=== PATIENT | male | born 1945 | race Caucasian/White ===

== ENCOUNTER 2020-02-04 09:40 | Inpatient (IN) | payer OTHER ==
[~2020-02-04] VITALS: Ht 182.9 cm; Wt 133.8 kg
--- NOTE | ~2020-02-04 | CON ---
[address] [address] CONSULTATION Name: MACY JOHNSON Room: [address] IN .R.#: [id number] Admission: 02/04/20 Attend Phys: Zhao Cintron MD Discharge: Date of : 49 Report #: [id number] THIS REPORT FOR: //name// cc: Leonardo Crawford MD, Srinath MD ~ THIS REPORT FOR: //name// CC: Zhao Crawford DATE OF SERVICE: 02/13/2020 CHIEF COMPLAINT: Podiatric consultation regarding dry skin to bilateral feet. The patient has complicated medical history, status post decubitus ulcer debridement, coronary artery disease, pneumonitis with recent COVID, type 2 diabetes mellitus, septicemia, congestive heart failure. PHYSICAL EXAMINATION: There is dry scaly skin to both plantar feet with no open ulcerations, inflammation or cardinal signs of infection. Toenails are dystrophic, but short and consistent with onychomycosis. He has faintly palpable dorsalis pedis and posterior tibial pulses bilaterally. No pallor or cyanosis noted. IMPRESSION: Xerosis, onychomycosis. PLAN: His toenails do not need to be debrided since they are currently in a short length. I just recommend his feet be washed with soap and water daily, dried and a good skin moisturizing lotion applied. No wound care is needed. By: 1310 1330Klaus Cherry DPM /ada
[2020-02-04 09:47] VITALS: BP 150/78
[2020-02-04] MEDS ORDERED: ASA81BEC PO (10:19)
[2020-02-04] MEDS ORDERED: MULTIPLE VITAM1 EAC2 PO (10:19)
[2020-02-04] MEDS ORDERED: BIOFREEZE118 ML TOP (10:19)
[2020-02-04] MEDS ORDERED: NORVASC 2.5 MG2.5 M1 PO (10:19)
[2020-02-04] MEDS ORDERED: NEURONTIN100 MG PO (10:20)
[2020-02-04] MEDS ORDERED: LASIX 40 MG TAB40 MG PO (10:20)
[2020-02-04] MEDS ORDERED: ZETIA10 MG PO (10:20)
[2020-02-04] MEDS ORDERED: [UNRECOGNIZED DRUG - OTHER] SUBQ (10:21)
[2020-02-04] MEDS ORDERED: KLOR-CON 10 ER10 MEQ PO (10:22)
[2020-02-04] MEDS ORDERED: HYDROCODON-ACE1 EAC7 PO (10:22)
[2020-02-04] MEDS ORDERED: HUMALOG100 UNIT/1 SUBQ ×2 (10:22)
[2020-02-04] MEDS ORDERED: LANTUS SUBQ (10:22)
[2020-02-04] MEDS ORDERED: FISH OIL 1,0001 EAC9 PO (10:23)
[2020-02-04] MEDS ORDERED: NYSTATIN 100,0015 G1 TOP (10:23)
[2020-02-04] MEDS ORDERED: LEVO-T75 MCG PO (10:23)
[2020-02-04] MEDS ORDERED: SANTYL OINTMENT30 G1 TOP (10:24)
[2020-02-04] MEDS ORDERED: SAW PALMETTO160 MG PO (10:24)
[2020-02-04] MEDS ORDERED: SIMVASTATIN80 MG PO (10:25)
[2020-02-04] MEDS ORDERED: TRIAMTERENE/HCT1 CA1 TOP (10:25)
[2020-02-04] MEDS ORDERED: HEPARIN 5,5000 UNIT1 SUBQ (10:26)
[2020-02-04 11:07] LABS: PROTIME 10.7 Seconds (9.20-11.50)
[2020-02-04 12:09] LABS: ABSOLUTE EOSINOPHILS 0.2 thou/uL (0.0-0.7); ABSOLUTE LYMPHOCYTES 1.5 thou/uL (0.8-5.3); ABSOLUTE MONOCYTES 1.2 thou/uL (0.0-1.2); ABSOLUTE NEUTROPHILS 16.4 thou/uL (1.6-8.1); BASOPHILS 0.2 %; EOSINOPHILS 0.9 %; HEMOGLOBIN 11.7 gm/dL (14.0-18.0); LYMPHOCYTES 7.7 %; MCHC 32.4 g/dL (28.0-37.0); MCV 89.4 fL (80.0-100.0); MONOCYTES 6.4 %; MPV 6.8 fl. (7.2-11.1); NUCLEATED RBCS 0 /100WBC; PLATELET COUNT* 431 thou/uL (150-400); POLYS 84.8 %; RBC 4.02 mil/uL (4.50-6.00); RDW-CV 15.5 % (10.5-14.5); WBC 19.3 thou/uL (4.0-11.0)
[2020-02-04 12:19] LABS: CALCIUM 8.9 mg/dL (8.5-10.1); CREATININE 1.4 mg/dL (0.6-1.3)
[2020-02-04 12:30] LABS: ALBUMIN 1.6 g/dL (3.4-5.0); MAGNESIUM 2.2 mg/dL (1.8-2.4); TOTAL BILIRUBIN 0.5 mg/dL (<0.1-1.0)
[2020-02-04 14:45] LABS: URINE BILIRUBIN NEGATIVE (Negative); URINE BLOOD 3+ (Negative); URINE CLARITY TURBID; URINE COLOR YELLOW; URINE GLUCOSE-RANDOM NEGATIVE (Negative); URINE KETONES NEGATIVE (Negative); URINE NITRITE-REFLEX NEGATIVE (Negative); URINE PROTEIN 2+ (Negative); URINE UROBILINOGEN 0.2 E.U./dl (0.2-1.0)
[2020-02-04 14:51] LABS: BACTERIA-REFLEX >30 Many /HPF (None Seen); CRYSTALS None Seen /LPF (None Seen); HYALINE CASTS 0-3 Few /LPF (None Seen); SQUAMOUS 0-3 Few /LPF (0-3); URINE LEUKOCYTES-REFLEX 2+ (Negative); URINE RBC 0-2 Rare /HPF (0-2); URINE WBC-REFLEX >25 Many /HPF (0-5); WBC CLUMPS Moderate (None Seen)
[2020-02-04 16:05] VITALS: BP 123/79
[2020-02-04 16:30] VITALS: BP 123/79; BP 127/59
--- NOTE | 2020-02-04 16:58 | EKG ---
[place] [address] ELECTROCARDIOGRAM REPORT Name: MACY JOHNSON Room: [address] ADM IN M.R.#: [id number] Admission: 02/04/20 Attend Phys: Zhao Cintron, Discharge: Date of : 49 Date of Service: 02/04/20 0944 Report #: [id number] THIS REPORT FOR: //name// [facility] ED Test Date: 2020-02-04 Test Time: 09:44:42 Pat Name: MACY JOHNSON Department: Room: [facility] Gender: M Edi Analyst: KYUNG : 1945 Requested By: César Fried Order Number: [id number] MD: Julien Banks Measurements Intervals [place] Rate: 99 P: 25 SC: 159 QRS: 14 QRSD: 139 T: -38 QT: 347 QTc: 446 Interpretive Statements Sinus tachycardia Ventricular premature complex Right bundle branch block Inferior infarct, age indeterminate Anterolateral infarct, age indeterminate No previous ECG available for comparison Electronically Signed On 02-04-2020 16:58:38 CDT by Julien Banks [email or web address] <ELECTRONICALLY SIGNED> By: Julien Banks MD, [facility] 02/04/20 1658 0944 0944 Julien Banks MD, [facility] /EPI
--- NOTE | 2020-02-04 19:53 | NUR ---
PT ARRIVED ON UNIT AROUND 1630, VS CHARTED, SR WITH PACS ON TELE, NC@2L, ADMISSION COMPLETED, MAX ASSIST, CROW CATHETER, ACHS ACCUCHECKS, HOURLY ROUNDING PERFORMED, POSSESSIONS AND CALL LIGHT WITHIN REACH. HIGH FALL RISK, RECENT KNEE REPLACEMENT
[2020-02-04 20:00] VITALS: BP 138/78
--- NOTE | 2020-02-04 21:30 | NUR ---
RECEIVED REPORT AND ASSUMED CARE OF PT AT 1930. ASSESSMENT COMPLETED AT THIS TIME. MYKEL LOWER LEG ACEWRAP INTACT, EDEMATOUS AND ELEVATED ON PILLOW. PURULENT DRAINAGE NOTED FROM AROUND PENIS AND CATHETER. REPOSITIONED IN BED. NOTED LG NECROTIC DECUB TO BUTTOCK. TUNNELING NOTED. SEE PHOTO ON CHART. TELEMETRY ON SHOWING A-FIB VS ST WITH FREQ PAC. WILL CONT TO MONITOR AND ASSIST NEEDED.
[2020-02-05] VITALS: BP 148/84
[2020-02-05 04:14] VITALS: BP 136/79; BP 160/60
[2020-02-05 05:59] LABS: ABSOLUTE BASOPHILS 0.1 thou/uL (0.0-0.2); ABSOLUTE EOSINOPHILS 0.3 thou/uL (0.0-0.7); ABSOLUTE LYMPHOCYTES 1.7 thou/uL (0.8-5.3); ABSOLUTE NEUTROPHILS 11.8 thou/uL (1.6-8.1); BASOPHILS 0.4 %; EOSINOPHILS 2.1 %; HEMOGLOBIN 11.2 gm/dL (14.0-18.0); LYMPHOCYTES 11.6 %; MCH 28.4 pg (26.0-34.0); MCHC 32.1 g/dL (28.0-37.0); MCV 88.5 fL (80.0-100.0); MONOCYTES 6.9 %; NUCLEATED RBCS 0 /100WBC; PLATELET COUNT* 439 thou/uL (150-400); RBC 3.95 mil/uL (4.50-6.00); RDW-CV 15.8 % (10.5-14.5); WBC 14.9 thou/uL (4.0-11.0)
[2020-02-05 06:16] LABS: CALCIUM 8.7 mg/dL (8.5-10.1); CREATININE 1.1 mg/dL (0.6-1.3); POTASSIUM 4.1 mmol/L (3.5-5.1)
--- NOTE | 2020-02-05 07:03 | NUR ---
SLEPT WELL. REPOSITIONED Q 2HR FROM SIDE TO SIDE. NO CHANGE IN ASSESSMENT. TELEMETRY CONT TO SHOW A-FIB. HS GOALS OF REST AND SAFETY. HOURLY ROUNDING OBSERVED.
[2020-02-05 08:30] VITALS: BP 135/75
[2020-02-05 12:00] VITALS: BP 117/69
--- NOTE | 2020-02-05 12:10 | 2DMMODE ---
[place] [address] 2 D/M-MODE ECHOCARDIOGRAM Name: MACY JOHNSON Room: [address] ADM IN .R.#: [id number] Admission: 02/04/20 Attend Phys: Zhao Cintron, Discharge: Date of : 49 Date of Service: 02/05/20 1210 Report #: [id number] THIS REPORT FOR: cc: Leonardo Crawford MD, Srinath MD Blick,Julien Gonzalez MD [facility] ~ APPROVED REPORT Study performed: 02/05/2020 09:22:35 EXAM: Comprehensive 2D, Doppler, and color-flow Echocardiogram Patient Location: In-Patient Room #: [facility] hospital Status: routine BSA: 2.51 HR: 95 bpm BP: 135/75 mmHg Rhythm: NSR Other Information Study Quality: Adequate Technically limited study due to poor endocardial definition. Indications Chest Pain Echo Enhancing Agent Indication: Endocardial border delineation Agent(s) / Amount(s) Used: Optison 3 cc 2D Dimensions IVSd: 12.13 (7-11mm) LVOT Diam: 21.07 (18-24mm) LVDd: 40.93 mm PWd: 9.81 (7-11mm) Ascending Ao: 34.10 (22-36mm) LVDs: 30.69 (25-40mm) Aortic Root: 34.83 mm Volumes Left Atrial Volume (Systole) LA ESV Index: 25.20 mL/m2 Aortic Valve AoV Peak Gregg.: 1.66 m/[place] [address] 2 D/M-MODE ECHOCARDIOGRAM Name: MACY JOHNSON Room: [address] IN .R.#: [id number] Admission: 02/04/20 Attend Phys: Zhao Cintron, Discharge: Date of : 49 Date of Service: 02/05/20 1210 Report #: [id number] AO Peak Gr.: 10.97 mmHg LVOT Max P.81 mmHg AO Mean Gr.: 6.20 mmHg LVOT Mean P.00 mmHg LVOT Max V: 1.21 m/s AO V2 VTI: 27.15 cm LVOT Mean V: 0.81 m/s JILLIAN (VTI): 2.72 cm2 LVOT V1 VTI: 21.19 cm Mitral Valve E/A Ratio: 0.79 MV Decel. Time: 238.27 ms MV E Max Gregg.: 1.04 m/s MV PHT: 69.10 ms MVA (PHT): 3.18 cm2 TDI E/Lateral E': 6.50 E/Medial E': 10.40 Medial E' Gregg.: 0.10 m/s Lateral E' Gregg.: 0.16 m/s Pulmonary Valve PV Peak Gregg.: 1.24 m/s PV Peak Gr.: 6.13 mmHg Left Ventricle The left ventricle is normal size. paradoxical septal motion consistent with previous sternotomy There is normal left ventricular wall thickness. Left ventricular systolic function is borderline. LVEF is 50-55%. Grade I - abnormal relaxation pattern. Right Ventricle The right ventricle is normal size. The right ventricular systolic function is normal. Atria The left atrium size is normal. The right atrium size is normal. Aortic Valve Mild aortic valve sclerosis. No aortic regurgitation is present. There is no aortic valvular stenosis. Mitral Valve There is mitral annular calcification. The mitral valve is normal in structure. There is no mitral valve regurgitation noted. No evidence of mitral valve stenosis. Tricuspid Valve The tricuspid valve is normal in structure. [place] [address] 2 D/M-MODE ECHOCARDIOGRAM Name: MACY JOHNSON Room: [address] IN [facility]#: [id number] Admission: 02/04/20 Attend Phys: Zhao Cintron, Discharge: Date of : 49 Date of Service: 02/05/20 1210 Report #: [id number] valve regurgitation noted. Pulmonic Valve The pulmonary valve is normal in structure. There is no pulmonic valvular regurgitation. Great Vessels The aortic root is normal in size. IVC is normal in size and collapses >50% with inspiration. Pericardium There is no pericardial effusion. <Conclusion> LVEF is 50-55%. Mild aortic valve sclerosis. <ELECTRONICALLY SIGNED> By: Julien Banks MD, FACC 02/05/20 1210 09 121 Julien Banks MD, FACC /INF
--- NOTE | 2020-02-05 14:44 | CON ---
[address] [address] CONSULTATION Name: MACY JOHNSON Room: [address] IN .R.#: [id number] Admission: 02/04/20 Attend Phys: Zhao Cintron MD Discharge: Date of : 49 Report #: [id number] THIS REPORT FOR: //name// cc: Leonardo Crawford MD, Srinath MD ~ THIS REPORT FOR: //name// CC: Zhao Crawford DATE OF SERVICE: 02/04/2020 CARDIOLOGY CONSULTATION HISTORY OF PRESENT ILLNESS: The patient is a 74-year-old single white male who I was asked to see in the hospital today after he complained of chest pain. The patient apparently presented in 2016 to [facility] with chest pain. He had 5-vessel bypass surgery. He is not very active and has a history of falling. He is felt to have had a previous stroke. He currently hurts all over. He has chronic edema and has leg wrappings. For the last 3 months, he has been in rehabilitation. The patient states last night, he felt a sharp pain in his chest. There is no radiation of the pain. Denied any shortness of breath or cough. The pain was not related to food. The patient apparently tested positive for COVID in December and was quarantined at the senior living. He has decubitus ulcer and has been taking vancomycin. He denied any belch with the episode. PAST MEDICAL HISTORY: Otherwise significant for cholecystectomy, knee surgery, hypertension, diabetes. MEDICATIONS: At the senior living include amlodipine, aspirin, Zetia, furosemide, Neurontin, insulin, hydrocodone, Synthroid, simvastatin, and triamterene. ALLERGIES: HE HAS AN ALLERGY TO PENICILLIN. FAMILY HISTORY: Negative for heart disease. SOCIAL HISTORY: He is single, lives in [place]. No smoking or alcohol abuse. REVIEW OF SYSTEMS: He is overweight. No history of asthma, liver disease, kidney disease, cancer, psychiatric illness, chronic skin condition. PHYSICAL EXAMINATION: [place] [address] CONSULTATION Name: MACY JOHNSON Room: [address]#: [id number] Admission: 02/04/20 Attend Phys: Zhao Cintron MD Discharge: Date of : 49 Report #: [id number] GENERAL: Revealed an obese elderly male lying in bed. He appeared in no distress. VITAL SIGNS: He had a blood pressure of 140/80, pulse 100. He is afebrile. HEENT: He was anicteric. Conjunctivae are pink. NECK: Veins cannot be assessed due to obesity. No carotid bruits. CHEST: Clear to auscultation. CARDIOVASCULAR: Regular rate and rhythm. ABDOMEN: Soft. EXTREMITIES: Had trace edema. SKIN: Cool and dry. NEUROLOGIC: Nonfocal. DIAGNOSTIC STUDIES: His workup in the Emergency Room today included an ECG that showed a sinus rhythm, evidence of previous inferior infarction, a PVC and a right bundle branch block. X-ray, he had a portable chest x-ray that showed normal heart size, some atelectasis. He had a V/Q scan of the lungs performed while in the Emergency Room that showed low probability for pulmonary embolus. Venous duplex scan in the Emergency Room for edema showed no DVT. LABORATORY WORK: In the Emergency Room, sodium 134, creatinine 1.4. His troponins were all 0.06. White blood cell count 19.3, hematocrit 36.0. IMPRESSION AND RECOMMENDATIONS: 1. Chest pain. Atypical for angina. Recommend conservative approach. Recommend no further cardiac evaluation at this time. I would continue aspirin a day. 2. Hypertension. The patient is on a diuretic and calcium mamta. 3. Hyperlipidemia. The patient is on a statin drug. 4. Diabetes. 5. Obesity. 6. Venous stasis. The patient wears support hose. 7. Recent diagnosis of COVID. 8. Poor mobility. The patient in rehabilitation at this time. <ELECTRONICALLY SIGNED> By: Julien Banks MD, FACC 02/05/20 1444 1628 1940Dagiulia Banks MD, FACC /nt
--- NOTE | 2020-02-05 16:46 | NUR ---
WOUND NURSE: PATIENT SEEN TO ADDRESS SACRAL UNSTAGEABLE PRESSURE INJURY, COVERED WITH UNSTABLE BLACK AND YELLOW NECROTIC AND FOUL SMELLING ESCHAR. MESSAGE DR. LETICIA HAND THAT PATIENT HAS SURGERY CONSULT FOR POSSIBLE DEBRIDEMENT. SHE WILL SEE PATIENT TOMORROW. RECOMMENDED AQUACEL AG UNDER ABD'S, SECURE WITH TAPE. CHANGE DRESSING DAILY. STAFF NURSE TO MEASURE AND APPLY DRESSING.
--- NOTE | 2020-02-05 18:33 | NUR ---
PT A&OX4 VSS. PT ARRIVED ON THIS UNIT 1829. PT ARRIVED ON LOW AIRLOSS SPECIALTY BED. PT BELONGINGS WITH NURSING STAFF TO ROOM 103. PT RESTS IN ROOM WITH CALL IGHT IN REACH. WILL CONTINUE TO MONITOR.
[2020-02-05 19:30] VITALS: BP 143/66
[2020-02-06 03:36] LABS: HEMATOCRIT 31.4 % (42.0-52.0); HEMOGLOBIN 10.3 gm/dL (14.0-18.0); MCH 29.1 pg (26.0-34.0); MCV 88.3 fL (80.0-100.0); MPV 6.6 fl. (7.2-11.1); NUCLEATED RBCS 0 /100WBC; PLATELET COUNT* 434 thou/uL (150-400); RBC 3.55 mil/uL (4.50-6.00); RDW-CV 15.4 % (10.5-14.5); WBC 12.9 thou/uL (4.0-11.0)
[2020-02-06 03:54] LABS: ALBUMIN 1.3 g/dL (3.4-5.0); CALCIUM 8.6 mg/dL (8.5-10.1); CREATININE 1.1 mg/dL (0.6-1.3); POTASSIUM 4.1 mmol/L (3.5-5.1); TOTAL BILIRUBIN 0.4 mg/dL (<0.1-1.0); TOTAL PROTEIN 6.1 g/dL (6.4-8.2)
--- NOTE | 2020-02-06 04:33 | NUR ---
PT AO X4 JUST ARRIVED TO FLOOR, PT IS ANXIOUS ABOUT BEING SENT TO THE [facility] UNIT, HE IS WORRIED ABOUT SURG THAT MAY BE DONE TO THE WOUND ON HIS COCCYX. I READ NOTE AND IT APPEARS THAT WOUND NURSE SPOKE WITH HIM AND THERE WILL BE A CONSULT WITH WOUND DR TODAY. HE WAS UNDER THE IMPMRESSION HE HAS ALREADY SEEN THE DR AND SURG WAS SCHEDULED. I TOLD HIM I WAS UNAWARE OF ANY SCHEDULED PROCEDURE AND WOULD LET HIM KNOW IF I FOUND OUT OTHERWISE. PT IS IN BARIATRIC BED, IS HARD TO REPOSITION AND LENDS LITTLE HELP TO MOVE. PT IS Q 2 TURN AND USE OF WEDGE IS USED TO OFFSET WT TO WOUND AREA. PT HAS CROW IN PLACE THAT WAS REPORTED AT SHIFT REPORT TO HAVE BEEN CHANGED OUT YESTERDAY. THERE IS A MODERATE AMOUNT OF THICK PURULENT DISCHARGE FROM PENIS. RUTHIE CARE PERFORMED WITH ABD PAD PLACED TO COLLECT SOME OF THE DISCHARGE. URINE IS CLEAR AND YELLOW IN ADEQUATE AMOUNT. PT IS ON 2L NC WITH LUNGS CLEAR/DIMINISHED IN ALL GREWAL. PT VOICED NO OTHER CONCERNS, SAFETY MEASURES IN PLACE, WCTM
[2020-02-06 05:57] LABS: ABSOLUTE EOSINOPHILS 0.3 thou/uL (0.0-0.7); ABSOLUTE LYMPHOCYTES 1.4 thou/uL (0.8-5.3); ABSOLUTE MONOCYTES 0.8 thou/uL (0.0-1.2); ABSOLUTE NEUTROPHILS 10.4 thou/uL (1.6-8.1); ANISOCYTOSIS 1+; PLATELET ESTIMATE INCREASED; POIKILOCYTOSIS 1+
--- NOTE | 2020-02-06 07:33 | NUR ---
CM [id number] BY NURSING OF THE NEED TO CONTACT PT'S DTR TO DISCUSS DISCHARGE PLANNING. PT'S DTR/DPOA RAYMUNDO INFORMS THAT THE PT IS CURRENTLY A LTC RESIDENT AT [facility] AND HAS BEEN FOR THE PAST 2 MONTHS AFTER COMPLETING A LONGTERM STAY. PT WAS UNABLE TO RETURN TO HIS DTR'S HOME AFTER SNF HE WAS 'TOO WEAK TO RETURN HOME WITH ME'. PT IS W/C BOUND AT THE FACILITY AND HAD BEEN ABLE TO FEED HIMSELF. PT'S DTR'S PLAN IS HOPEFUL TO HAVE HIM RETURN THERE AT D/C. CM TO F/U WITH [facility] PT GETS CLOSER TO D/C TO DISUCSS DISCHARGE PLANNING. [facility] WILL REQUIRE THAT THIS PT HAVE RAPID COVID TESTING PRIOR TO D/C. CM WILL REMAIN AVAILABLE TO ASSIST AND FOLLOW NEEDED.
[2020-02-06 08:10] VITALS: BP 119/64
[2020-02-06 15:49] VITALS: BP 136/66
--- NOTE | 2020-02-06 17:23 | NUR ---
Pt AOx4, flat affect. Pt is bedridden and [facility]. Pt c/o min pain. Pt tolerating IV antibiotics. PT is turned every 2 hr on a nidhi bed. Bedside debridement done today by Dr Sotelo. pt tolerated procedure well. Wound care orders put in. Dressing saturated by 1730 and changed again by nurse. see documentation. Pt on carb control diet, toelrating well. Hourly rounding complete will continue to monitor
[2020-02-06 20:30] VITALS: BP 126/55
[2020-02-07 05:30] LABS: ABSOLUTE BASOPHILS 0.1 thou/uL (0.0-0.2); ABSOLUTE EOSINOPHILS 0.2 thou/uL (0.0-0.7); ABSOLUTE LYMPHOCYTES 1.5 thou/uL (0.8-5.3); ABSOLUTE NEUTROPHILS 10.1 thou/uL (1.6-8.1); BASOPHILS 0.6 %; EOSINOPHILS 1.4 %; HEMATOCRIT 30.8 % (42.0-52.0); HEMOGLOBIN 10.2 gm/dL (14.0-18.0); LYMPHOCYTES 11.4 %; MCH 29.1 pg (26.0-34.0); MONOCYTES 7.6 %; NUCLEATED RBCS 0 /100WBC; PLATELET COUNT* 465 thou/uL (150-400); RDW-CV 15.4 % (10.5-14.5); WBC 12.8 thou/uL (4.0-11.0)
[2020-02-07 05:46] LABS: ALBUMIN 1.4 g/dL (3.4-5.0); CALCIUM 8.2 mg/dL (8.5-10.1); CREATININE 1.2 mg/dL (0.6-1.3); MAGNESIUM 1.8 mg/dL (1.8-2.4); PHOSPHORUS* 2.9 mg/dL (2.5-4.9); TOTAL BILIRUBIN 0.4 mg/dL (<0.1-1.0); TOTAL PROTEIN 6.1 g/dL (6.4-8.2)
--- NOTE | 2020-02-07 07:25 | NUR ---
PATIENT HAS SLEPT WELL THROUGHOUT THE NIGHT. VSS ON 2L 02 VIA NASAL CANNULA. MEDICATIONS GIVEN ORDERED AND CHARTED. PATIENT REPOSITIONED EVERY 2HRS. WOUND ON COCCYX CLEANED AND DRESSING CHANGED THIS AM. DRESSING IS C/D/I. IV IN LEFT HAND-SL. IV ABT GIVEN WITHOUT ANY ADVERSE SIDE EFFECTS NOTED. CROW TO DEPENDENT DRAINAGE WITH YELLOW URINE OUTPUT. FALL PRECAUTIONS IN PLACE AND HOURLY ROUNDS MADE. WILL CONTINUE WITH PLAN OF CARE AND NURSING TO MONITOR.
[2020-02-07 07:40] VITALS: BP 113/62
--- NOTE | 2020-02-07 12:05 | NUR ---
Nutrition: Pt admitted with UTI. Seen for pressure ulcer on coccyx, decub s/p debridement. Labs: BG 179-118, alb 1.4, prealb 9.7. Physician indicated severe PCM based on alb - defer. Wt: 295#. PMHx noted. Ensure MAX is ordered. Consider changing it to Kamran unflavored for better BG control and added protein. Consider Mild nutrition risk.
[2020-02-07 16:38] VITALS: BP 148/70
--- NOTE | 2020-02-07 18:32 | NUR ---
PT AOX4. TOLERATED IV ANTIBIOTICS. NO APPARENT PAIN THIS SHIFT. TURNED Q2H. DRESSING ON COCCYX REMAINED CLEAN DRY INTACT. HOURLY ROUNDING COMPLETE. PROGRESSING TOWARDS GOALS.
[2020-02-07 21:00] VITALS: BP 141/72
--- NOTE | 2020-02-08 04:16 | NUR ---
Last evening patient refused to have his dressing at his coccyx changed. He only likes to lay on his L side so it's been hard to do positioning. He refused lab draw this am. chemical production technician told him they would try again later and he said and I'll refuse again later.
--- NOTE | 2020-02-08 04:55 | NUR ---
Patient is withdrawn. His IV in his L hand was leaking and almost all the way out. New IV started 20G rt hand. He had a critical vanco level it was called to pharmacy because they are dosing it,they said to hold dose last evening. Text message also sent to Dr Crews about the above at 1944. Vanco level was 36. He has denied need for pain meds. he has slept intermittenly.
[2020-02-08 08:00] VITALS: BP 116/56
--- NOTE | 2020-02-08 13:46 | NUR ---
RIGHT BASILIC VESSEL ACCESSED FOR 4 [address] LUCIAN SINGLE LUMEN PICC. LINE PRE-TRIMMED TO 49CM AND ADVANCED TO THE ZERO MIRANDA WITH NO RESISTANCE MET. UPPER ARM CIRCUMFERENCE ABOVE INSERTION SITE= 15". SHERLOCK MAGNET AND 3CG CONFIRMATION OF TIP TERMINATION AT THE CAVOATRIAL JUNCTION APPRECIATED. GUIDEWIRE REMOVED, LINE FLUSHED AND INSERTION SITE DRESSED. REPORT GIVEN TO DANEIL SOUZA.
[2020-02-08 13:56] VITALS: BP 119/59
--- NOTE | 2020-02-08 15:07 | NUR ---
merly w/[facility] called for an update on pt. merly stated they have a skilled bed avail for at d/c. merly notified by this cm there are currently no plans for the pt to d/c from hospital this wknd. merly is not needing anything sent at this time. cm to cont to follow.
--- NOTE | 2020-02-08 16:26 | NUR ---
PICC LINE PLACED BY INFUSION NURSE TODAY PER ORDER. TRISTIN COELLO DD. PRN PAIN MEDICATION PER PT REQUEST.
[2020-02-08 19:48] LABS: ABSOLUTE BASOPHILS 0.1 thou/uL (0.0-0.2); ABSOLUTE EOSINOPHILS 0.2 thou/uL (0.0-0.7); ABSOLUTE LYMPHOCYTES 1.1 thou/uL (0.8-5.3); ABSOLUTE MONOCYTES 0.9 thou/uL (0.0-1.2); ABSOLUTE NEUTROPHILS 10.3 thou/uL (1.6-8.1); BASOPHILS 0.5 %; EOSINOPHILS 1.3 %; HEMOGLOBIN 10.1 gm/dL (14.0-18.0); LYMPHOCYTES 8.6 %; MCH 28.8 pg (26.0-34.0); MCHC 32.6 g/dL (28.0-37.0); MCV 88.4 fL (80.0-100.0); MONOCYTES 6.9 %; MPV 6.6 fl. (7.2-11.1); NUCLEATED RBCS 0 /100WBC; PLATELET COUNT* 526 thou/uL (150-400); POLYS 82.7 %; RDW-CV 15.5 % (10.5-14.5); WBC 12.5 thou/uL (4.0-11.0)
[2020-02-08 19:54] LABS: CREATININE 1.5 mg/dL (0.6-1.3); POTASSIUM 4.2 mmol/L (3.5-5.1)
[2020-02-08 20:11] VITALS: BP 123/73
[2020-02-09 04:18] LABS: HEMATOCRIT 29.9 % (42.0-52.0); HEMOGLOBIN 9.9 gm/dL (14.0-18.0); MCHC 33.2 g/dL (28.0-37.0); MCV 87.5 fL (80.0-100.0); MPV 6.9 fl. (7.2-11.1); NUCLEATED RBCS 0 /100WBC; PLATELET COUNT* 526 thou/uL (150-400); RBC 3.41 mil/uL (4.50-6.00); RDW-CV 15.1 % (10.5-14.5); WBC 12.8 thou/uL (4.0-11.0)
[2020-02-09 04:21] LABS: ALBUMIN 1.4 g/dL (3.4-5.0); CALCIUM 7.9 mg/dL (8.5-10.1); CREATININE 1.4 mg/dL (0.6-1.3); POTASSIUM 3.8 mmol/L (3.5-5.1); TOTAL BILIRUBIN 0.3 mg/dL (<0.1-1.0); TOTAL PROTEIN 5.9 g/dL (6.4-8.2)
[2020-02-09 06:36] LABS: ABSOLUTE EOSINOPHILS 0.1 thou/uL (0.0-0.7); ABSOLUTE MONOCYTES 0.4 thou/uL (0.0-1.2); ABSOLUTE NEUTROPHILS 11.3 thou/uL (1.6-8.1); METAMYELOCYTES 2 %; MYELOCYTES 1 %
[2020-02-09 06:37] LABS: HYPOCHROMASIA 1+; MICROCYTES 1+; PLATELET ESTIMATE INCREASED
[2020-02-09 08:45] VITALS: BP 113/59
[2020-02-09 19:50] VITALS: BP 110/59
--- NOTE | 2020-02-09 20:10 | NUR ---
I ASSUMED CARE OF THE PATIENT AT 0700. HE IS ALERT AND ORIENTED X4 AND IS ON BEDREST. BED IS IN THE LOW LOCKED POSITION AND CALL LIGHT IS IN REACH. HOURLY ROUNDING IS COMPLETED AND PATIENT NEEDS ARE MET. PAIN IS MANAGED WITH PRN MEDS. PATIENT IS REPOSITIONED EVERY 2 HOURS. DRESSING CHANGE WAS COMPLETED WITH THE ASSISTANCE OF THE OCCUPATIONAL THERAPIST. LEG WRAPS WERE REMOVED AND NOT REPLACED THE LEGS LOOKED BETTER THAN ANTICIPATED. MRSA SWAB WAS SENT TO LAB. I REQUESTED [employer]HT[employer] FROM THE [facility] FOR THE NEXT DRESSING CHANGE. HE HAD A BOWEL MOVEMENT TODAY. VANC TROUGH CAME BACK CRITICAL HIGH AND NIGHT IV DOSE WILL BE HELD BUT PO DOSE WILL BE GIVEN PER PHARMACY. BLOOD SUGAR IS MONITORED AND CONTROLLED WITH INSULIN. WILL CONTINUE TO MONITOR.
[2020-02-10 05:59] LABS: HEMOGLOBIN 10.5 gm/dL (14.0-18.0); MCH 28.6 pg (26.0-34.0); RBC 3.67 mil/uL (4.50-6.00)
[2020-02-10 06:00] LABS: ABSOLUTE BASOPHILS 0.2 thou/uL (0.0-0.2); ABSOLUTE EOSINOPHILS 0.6 thou/uL (0.0-0.7); ABSOLUTE LYMPHOCYTES 1.2 thou/uL (0.8-5.3); BASOPHILS 1.5 %; EOSINOPHILS 4.9 %; HEMATOCRIT 32.3 % (42.0-52.0); LYMPHOCYTES 9.8 %; MCHC 32.6 g/dL (28.0-37.0); MCV 87.9 fL (80.0-100.0); MONOCYTES 8.5 %; MPV 6.5 fl. (7.2-11.1); NUCLEATED RBCS 0 /100WBC; PLATELET COUNT* 592 thou/uL (150-400); POLYS 75.3 %; RDW-CV 15.6 % (10.5-14.5); WBC 11.9 thou/uL (4.0-11.0)
[2020-02-10 06:12] LABS: ALBUMIN 1.5 g/dL (3.4-5.0); CALCIUM 8.4 mg/dL (8.5-10.1); CREATININE 1.2 mg/dL (0.6-1.3); MAGNESIUM 1.9 mg/dL (1.8-2.4); PHOSPHORUS* 3.2 mg/dL (2.5-4.9); POTASSIUM 4.1 mmol/L (3.5-5.1); TOTAL BILIRUBIN 0.3 mg/dL (<0.1-1.0); TOTAL PROTEIN 6.1 g/dL (6.4-8.2)
--- NOTE | 2020-02-10 06:12 | NUR ---
PT A&OX4, ON ROOM AIR, VSS, COCCYX DRSG CHGD ORDERED, CROW IN PLACE, PT TURNED Q2H. HOURLY ROUNDINGS COMPLETE, WILL CONTINUE TO MONITOR.
[2020-02-10 08:00] VITALS: BP 133/53
[2020-02-10 16:07] VITALS: BP 127/51
--- NOTE | 2020-02-10 17:49 | NUR ---
PT RESTING IN BED THROUGHOUT SHIFT. REPOSITIONED FREQUENTLY. CORW CATH DRAINING CLOUDY YELLOW URINE. WOUND CARE DONE PER DR ESPINOSA TODAY. PAIN WELL CONTROLLED WITH PO MEDS. GOOD APPETITE
[2020-02-10 19:42] VITALS: BP 121/67
[2020-02-10 20:38] LABS: URINE BILIRUBIN NEGATIVE (Negative); URINE BLOOD 2+ (Negative); URINE CLARITY HAZY; URINE COLOR YELLOW; URINE GLUCOSE-RANDOM NEGATIVE (Negative); URINE KETONES NEGATIVE (Negative); URINE LEUKOCYTES-REFLEX 3+ (Negative); URINE NITRITE-REFLEX NEGATIVE (Negative); URINE PROTEIN NEGATIVE (Negative); URINE UROBILINOGEN 0.2 E.U./dl (0.2-1.0)
[2020-02-10 20:41] LABS: SQUAMOUS 0-3 Few /LPF (0-3)
[2020-02-10 20:42] LABS: BACTERIA-REFLEX 1-9 Few /HPF (None Seen); CASTS None Seen /LPF (None Seen); CRYSTALS None Seen /LPF (None Seen); URINE RBC 3-10 Few /HPF (0-2); URINE WBC-REFLEX 6-15 Few /HPF (0-5)
--- NOTE | 2020-02-11 04:14 | NUR ---
PT A&OX4, ON ROOM AIR, TRISTIN GONZALEZ IN PLACE, PT TURNED Q2H, NO C/O PAIN THIS SHIFT. HOURLY ROUNDINGS COMPLETE, WILL CONTINUE TO MONITOR.
[2020-02-11 04:19] LABS: HEMATOCRIT 31.5 % (42.0-52.0); HEMOGLOBIN 10.2 gm/dL (14.0-18.0); MCH 28.4 pg (26.0-34.0); MCHC 32.5 g/dL (28.0-37.0); MCV 87.3 fL (80.0-100.0); MPV 6.3 fl. (7.2-11.1); RBC 3.6 mil/uL (4.50-6.00); RDW-CV 15.8 % (10.5-14.5); WBC 11.1 thou/uL (4.0-11.0)
[2020-02-11 04:56] LABS: ALBUMIN 1.5 g/dL (3.4-5.0); CALCIUM 8.1 mg/dL (8.5-10.1); CREATININE 1.2 mg/dL (0.6-1.3); MAGNESIUM 1.9 mg/dL (1.8-2.4); POTASSIUM 4.2 mmol/L (3.5-5.1); TOTAL BILIRUBIN 0.4 mg/dL (<0.1-1.0); TOTAL PROTEIN 5.8 g/dL (6.4-8.2)
[2020-02-11 08:15] VITALS: BP 137/55
[2020-02-11 15:46] VITALS: BP 142/68
--- NOTE | 2020-02-11 16:00 | NUR ---
PTS PLAN FOR DISCHARGE CONTINUES TO BE TO GO TO SNF BED [facility]. HE IS NORMALLY A LTC RESIDENT THERE. WAITING C AND S TO COME BACK. SAID HE MAY NEED TO GO ON IV ANTIBIOTICS.
--- NOTE | 2020-02-11 18:18 | NUR ---
Pt AOx4. dressing changes to sacral wound BID. Pt tolerates well. c.o pain thsi shift to bilat legs, managing with PO norco. Pt is up with monica lift only. q2h turn. Receiving IV antibiotics and tolerating well. No other concerns this shift. Hourly rounds complete. Will continue to monitor
[2020-02-11 20:00] VITALS: BP 136/72
--- NOTE | 2020-02-12 04:30 | NUR ---
PT A&O X 4, VSS ON RA. MEDS GIVEN ORDERED. PT INCONTINENT OF BOWEL, HAD BM THIS SHIFT. DRESSING CHANGED AND C/D/I. PAIN MANAGED WITH NORCO. HOURLY ROUNDINGS, TURNS COMPLETED. CROW IN PLACE. CALL LIGHT WITHIN REACH. WILL CONTINUE TO MONITOR.
[2020-02-12 08:15] VITALS: BP 107/66
--- NOTE | 2020-02-12 13:51 | NUR ---
LEFT VM FOR LUISA/SHUKRI LETTING HER KNOW IT WILL BE SEV.MORE DAYS BEFORE PT.READY FOR DISCHARG. PT.SAID SURGEON MAY TRY A NEW DRESSING TO WOUND.
[2020-02-12 16:00] VITALS: BP 114/72
--- NOTE | 2020-02-12 17:58 | NUR ---
pt Aox4. Pt remained in the bed this shift, worked with PT to do exercises. Jess lift to transfer. Pt c/o mild pain this shift treated with po norco. TOlerating IV antibiotics and carb control diet. No concerns voiced thsi shift, Physician changed sacral dressing today. PRogressign towards goals. Will continue to monitor
[2020-02-12 19:38] VITALS: BP 127/70
--- NOTE | 2020-02-13 05:53 | NUR ---
PT ALERT AND ORIENTED. CROW IN PLACE, CLEAR YELLOW URINE OUTPUT GOOD. NO PAIN OR NAUSEA REPORTED. RECEIVED ALL ABX AND MEDS SCHEDULED. SACRUM/COCCYX AREA DRESSING C/D/I. Q2 TURN, ROOM AIR. HE IS ABLE TO ROLL TO ASSIST MOVING. NO CHEST PAIN OR SHORTNESS OF BREATH. EXREMETIES STILL EDEMOUS. WILL CONTINUE TO MONITOR.
[2020-02-13 09:35] VITALS: BP 131/60
--- NOTE | 2020-02-13 12:10 | NUR ---
WOUND NURSER: PATIENT SEEN TO ADDRESS SACRAL WOUND WHICH IS NOW STAGE 4 PRESSUR INJURY WITH EXPOSED BONE AND MUSCLE. MEASUREMENTS ARE 11.0 X 11.0 X 4.5 CM, UNDERMINING OF 4.0 CM FROM [address] HAND PRESENT AND REMOVED SMALL AMOUNT OF NECROTIC TISSUE IN THE BASE OF THE WOUND BED. WOUND BED PRESENTS WITH RED, 70% NONGRANULATING TISSUE ALONG WITH 30% YELLOW SLOUGH AND NECROTIC TISSUE. PERIWOUND TISSUE WITH REDNESS, NO WARMTH. CLEANSED WITH SOAP AND WATER, RINSED, THEN PATTED DRY. APPLIED SKIN PREP UNDER TRANSPARENT DRAPE. APPLIED WOUND VAC DRESSING PER PROTOCAL. SETTINGS: 125MMHG CONTINUOUS NEG PRESSURE, INTENSITY HIGH. PATIENT INSTRUCTED ON IMPORTANCE OF OFFLOADING WOUND AND ON CONSUMING DIET HIGH IN PROTEIN. PATIENT STATES HE UNDERSTANDS. CONTAINS LARGE AMOUNT OF SEROUSANGUINOUS DRAINAGE ON OLD DRESSING.
[2020-02-13 15:40] VITALS: BP 117/63
--- NOTE | 2020-02-13 18:15 | NUR ---
PATIENT RESTING IN BED. PATIENT REPOSTIONED IN SPECIALTY BED THROUGHOUT DAY. PATIENT HAD COMPLAINTS OF PAIN X 1 TODAY, TREATED ADEQUATELTY WITH MEDICATION. PATIENT SEEN BY WOUND CARE NURSE THIS AM AND WOUND VAC PLACED TO SACRAL WOUND. PATIENT HAS GOOD APPETITE. PATIENT DENIES ANY NEEDS AT THIS TIME. CALL LIGHT WITHIN REACH. WILL CONTINUE TO MONITOR.
[2020-02-13 20:00] VITALS: BP 126/67
[2020-02-14] VITALS (8 sets, daily range): BP systolic 122–128; BP diastolic 61–70
--- NOTE | 2020-02-14 07:30 | NUR ---
PT A&OX4, ON ROOM AIR, VSS, CROW IN PLACE, WOUND VAC IN PLACE, PT TURNED Q2H, PAIN MEDS REQUESTED AND GIVEN ORDERED. HOURLY ROUNDINGS COMPLETE. REPORT GIVEN AND CARE TRANSFERED TO DAY SHIFT NURSE AT APPROX 0705.
[2020-02-14] MEDS ORDERED: FIRVANQ50 MG/1 ML PO (09:47)
[2020-02-14] MEDS ORDERED: PROTONIX40 M1 PO (09:47)
[2020-02-14] MEDS ORDERED: ACETAMINOPHEN325 M1 PO (09:47)
[2020-02-14] MEDS ORDERED: FLORASTOR250 MG PO (09:47)
[2020-02-14] MEDS ORDERED: HOME MEDICATION TOP (09:47)
[2020-02-14] MEDS ORDERED: MIRALAX17 GM PO (09:47)
[2020-02-14] MEDS ORDERED: HYDROCODON-ACE1 EAC7 PO (09:47)
[2020-02-14] MEDS ORDERED: CEFEPIME 11 GM/50 ML IV (09:53)
--- NOTE | 2020-02-14 14:44 | NUR ---
DISCHARGED PT.TODAY TO RETURN TO [facility]. LEFT VM FOR [facility] THAT PT. HAS DISCHARGE ORDERS. NEEDS BARIATRIC LOW AIRLOSS MATTRESS,WOUND VAC AND IV CEFEPIME Q 12 HRS. FAXED DISCHARGE ORDERS, SUMMARY,SURGERYS PROGRESS NOTE FROM TODAY, CEFEIME PRESCRITION,ORDERS FOR WOUND VAC,MATTRESS, AND WOUND VAC APPT.TO HER AT [phone]. AMBULANCE FORM FILLED OUT. DID NOT FAX OR CALL FOR AMBULANCE.
--- NOTE | 2020-02-14 17:21 | NUR ---
Pt AOx4. Pt remained in the bed this shift. Jess lift to transfer. Pt turned q2hr and PRN, on low air loss mattress. Wound vac in place at 125 continuous, draining mod amt ss drainage. Pt c/o pain to backside and legs and managing with PO norco. Hourly rounding complete. Tolerating IV antibiotics. Will continue to monitor
--- NOTE | 2020-02-15 06:14 | NUR ---
Alert and oriented x 4. He has a wound vac set 125 and there is sersangunous drainage coming from there, the woundvac is covering the sacral 7 coccyx wound and dressing is intact. He has a mepilex dressing to the rt buttocks. He has a bonds to Wang.D. His vitals are stable and his roomair O2 sat was 96%. Blod sugar was 189 last evening he has insulin and a snack at bedtime. He requested pain meds this am. He has slept intermittenly.
[2020-02-15 07:15] VITALS: BP 136/74
[2020-02-15 14:55] VITALS: BP 125/61
--- NOTE | 2020-02-15 15:30 | NUR ---
LUISA/SHUKRI CALLED AND CAN ACCEPT PT.TO A SKILLED BED TODAY. INSURANCE HAS AUTH'D A SKILLED STAY. FAXED DISCHARGE SUMMARY AND MED LIST TO HER [phone]. CHART COPIED BY [employer] NOTIFIED PT.AND DAUGHTER,WHO WAS IN RROM. LIBBY LLANES WILL CALL REPORT TO [phone]. PT.TO GO BY AMBULANCE DUE TO LARGE SACRAL WOUND. MED.NECESSITY FORM FAXED TO [facility]ED AMBULANCE SPECIAL COLLECTIONS LIBRARIAN FOR 1700. NOTIFIED LUISA OF SPECIAL COLLECTIONS LIBRARIAN TIME.
[2020-02-15 15:55] VITALS: BP 125/61
[2020-02-15 16:52] VITALS: BP 117/60
[2020-02-15 17:06] VITALS: BP 125/61
--- NOTE | 2020-02-15 17:07 | NUR ---
PT CHART COPIED. CALLED FACILITY TO GIVE REPORT, CURRENTLY ON HOLD. WOUND VAC REMOVED AND [id number] RETURNED TO CENTRAL SUPPLY. PICTURES TAKEN. PICC AND CROW IN PLACE. FALL RISK PRECAUTIONS IN PLACE. HOURLY ROUNDING COMPLETED. PT LEFT VIA AMBULANCE TO [facility].
== END 2020-02-15 17:08 | DRG 853 ==
LOC: M.ERS 09:40 → M.2W 13:16 → M.TBA-ER 13:16 → M.ORTHSURG 13:16 → M.2W 16:21 → M.ORTHSURG 02-05 18:09
PROVIDERS: Emergency Medicine Emergency Medical Services; Internal Medicine; Surgery; ADMIT Internal Medicine; ATTEND Internal Medicine
PROC: 0QB10ZZ Excision of Sacrum, Open Approach (ICD-10-PCS; principal; 2020-02-04)
PROC: 05HY33Z Insertion of Infusion Device into Upper Vein, Percutaneous Approach (ICD-10-PCS; 2020-02-08)
DX: A41.9 Sepsis, unspecified organism (principal); L89.103 Pressure ulcer of unspecified part of back, stage 3; J18.9 Pneumonia, unspecified organism; N17.0 Acute kidney failure with tubular necrosis; E43 Unspecified severe protein-calorie malnutrition; N39.0 Urinary tract infection, site not specified; E44.0 Moderate protein-calorie malnutrition; I50.32 Chronic diastolic (congestive) heart failure; Z68.41 Body mass index [BMI] 40.0-44.9, adult; Z20.828 Contact with and (suspected) exposure to other viral communicable diseases; R65.20 Severe sepsis without septic shock; E78.5 Hyperlipidemia, unspecified; E66.9 Obesity, unspecified; I87.8 Other specified disorders of veins; B35.1 Tinea unguium; L85.3 Xerosis cutis; E03.9 Hypothyroidism, unspecified; I25.10 Atherosclerotic heart disease of native coronary artery without angina pectoris; I87.2 Venous insufficiency (chronic) (peripheral); I11.0 Hypertensive heart disease with heart failure; Z88.0 Allergy status to penicillin; Z95.1 Presence of aortocoronary bypass graft; Z79.899 Other long term (current) drug therapy